=== PATIENT | male | born 1970 | race Two or more races ===

== ENCOUNTER 2019-12-25 23:25 | Inpatient (IN) | payer OTHER ==
[~2019-12-25] VITALS: Ht 175.3 cm; Wt 85.1 kg
--- NOTE | 2019-12-25 23:44 | NUR ---
CARE ASSUMED OF PT. PT IN CT VIA [facility]. WILL ASSESS UPON RETURN.
[2019-12-26] MEDS ORDERED: LIDOCAINE JELLY 2%, 30GM TP ONE
--- NOTE | 2019-12-26 00:08 | NUR ---
Pt returned from CT. Answering questions appropriately. Pt is tearful and repetative. Moving all extemities. +ETOH tonight. Lido jelly applied prior to wound cleaning per ERP request. Family member at bedside. Call light in reach.
--- NOTE | 2019-12-26 00:50 | NUR ---
Dorcas LANGSTON at bedside for suture repair.
[2019-12-26] MEDS ORDERED: SODIUM CHLORIDE 0.9% 1,000 ML IV ONE (00:53)
[2019-12-26] MEDS ORDERED: SODIUM CHLORIDE FLUSH 10ML SYR IVF ONE (01:00)
[2019-12-26] MEDS ORDERED: AMPICILLIN/SULBACTAM 3 GM in SODIUM CHLORIDE 0.9% 100 ML IV ONE (01:00)
[2019-12-26] MEDS ORDERED: MORPHINE SULFATE 4 MG/ML, 1ML IVPush PRN (01:00)
[2019-12-26 01:09] LABS: BASOPHILS # (AUTO) 0.03 x10^3/uL (0-0.1); BASOPHILS % (AUTO) 0 % (0-1); EOSINOPHILS # (AUTO) 0.16 x10^3/uL (0-0.4); EOSINOPHILS % (AUTO) 2 % (1-7); LYMPHOCYTES % (AUTO) 25 % (22-44); MD NO; MEAN CORPUSCULAR HEMOGLOBIN 34.7 pg (27.5-34.5); MEAN CORPUSCULAR HGB CONC 34.7 g/dL (33.2-36.2); MEAN CORPUSCULAR VOLUME 99.9 fL (81-97); MEAN PLATELET VOLUME 7.8 fL (7.4-10.4); MONOCYTES # (AUTO) 0.87 x10^3/uL (0.2-0.8); MONOCYTES % (AUTO) 10 % (2-9); NEUTROPHILS # (AUTO) 5.47 x10^3/uL (1.8-6.8); NEUTROPHILS % (AUTO) 63 % (42-75); PLATELET COUNT 226 x10^3/uL (130-400); RED BLOOD COUNT 4.58 x10^6/uL (4.38-5.82); RED CELL DISTRIBUTION WIDTH 13.1 % (9.4-14.8)
[2019-12-26 01:19] LABS: ALBUMIN 3.7 g/dL (3.4-5.0); ANION GAP 5 mmol/L (5-15); CALCIUM 8.5 mg/dL (8.5-10.1); CHLORIDE 107 mmol/L (98-107); CREATININE 1.07 mg/dL (0.7-1.3)
[2019-12-26] MEDS ORDERED: ZIPRASIDONE 20 MG INJ IM ONE (01:30)
[2019-12-26] MEDS ORDERED: MORPHINE SULFATE 4 MG/ML, 1ML ONE (02:14)
--- NOTE | 2019-12-26 02:21 | NUR ---
Pt c/o increasing facial pain and DAMIAN. No other acute neuro changes noted from initial assessment. Pt medicated per NOV for pain. Dr Riggins at bedside to [facility] for admission.
[2019-12-26 02:58] VITALS: BP 136/75
[2019-12-26] MEDS ORDERED: LORazepam 2 MG/ML, 1ML IVPush PRN ×2 (03:30→11:30)
[2019-12-26] MEDS ORDERED: hydrALAzine 20 MG/ML, 1ML IVPush PRN (03:30)
[2019-12-26] MEDS ORDERED: ONDANSETRON 2MG/ML, 2ML IVPush PRN (03:30)
[2019-12-26 04:00] LABS: ALANINE AMINOTRANSFERASE 26 U/L (12-78)
[2019-12-26 04:02] LABS: ALKALINE PHOSPHATASE 69 U/L (45-117); INTERNATIONAL NORMALIZED RATIO 0.94 (0.93-1.1); TOTAL PROTEIN 7.8 g/dL (6.4-8.2)
[2019-12-26] MEDS: POTASSIUM CHLORIDE 20 MEQ, MAGNESIUM SULFATE 2 GM, THIAMINE 200 MG, MVI ADULT 10 ML, FO... IV SCH ×2 (04:08→15:12)
[2019-12-26 04:10] LABS: BILIRUBIN, DIRECT < 0.1 mg/dL (0.1-0.2); BILIRUBIN,TOTAL < 0.1 mg/dL (0.2-1.0)
[2019-12-26 04:11] LABS: ALBUMIN 3.7 g/dL (3.4-5.0)
[2019-12-26 06:43] VITALS: BP 133/81
[2019-12-26] MEDS: SENNA/DOCUSATE TABLET PO SCH (08:09)
[2019-12-26] MEDS: AMPICILLIN/SULBACTAM 3 GM in SODIUM CHLORIDE 0.9% 100 ML IV SCH ×3 (08:09→20:20)
[2019-12-26 08:16] LABS: AMPHETAMINE SCREEN, URINE Negative (Negative); BARBITURATE SCREEN, URINE Negative (Negative); BENZODIAZEPINE SCREEN, URINE Negative (Negative); CANNABINOID SCREEN, URINE Negative (Negative); COCAINE SCREEN, URINE Negative (Negative); METHADONE SCREEN, URINE Negative (Negative); OPIATE SCREEN, URINE Positive (Negative)
[2019-12-26] MEDS: morphine SULFATE 10 MG/ML, 1ML IVPush PRN ×2 (12:41→18:23)
[2019-12-26 13:35] VITALS: BP 144/82
[2019-12-26 20:04] VITALS: BP 137/92
[2019-12-27 00:26] VITALS: BP 133/85
[2019-12-27] MEDS: AMPICILLIN/SULBACTAM 3 GM in SODIUM CHLORIDE 0.9% 100 ML IV SCH ×4 (01:55→20:05)
[2019-12-27] MEDS: POTASSIUM CHLORIDE 20 MEQ, MAGNESIUM SULFATE 2 GM, THIAMINE 200 MG, MVI ADULT 10 ML, FO... IV SCH (02:21)
[2019-12-27 05:36] LABS: BASOPHILS # (AUTO) 0.03 x10^3/uL (0-0.1); BASOPHILS % (AUTO) 0 % (0-1); EOSINOPHILS # (AUTO) 0.08 x10^3/uL (0-0.4); EOSINOPHILS % (AUTO) 1 % (1-7); LYMPHOCYTES # (AUTO) 1.96 x10^3/uL (1-3.4); LYMPHOCYTES % (AUTO) 17 % (22-44); MD NO; MEAN CORPUSCULAR HEMOGLOBIN 34.2 pg (27.5-34.5); MEAN CORPUSCULAR HGB CONC 34.1 g/dL (33.2-36.2); MEAN CORPUSCULAR VOLUME 100.3 fL (81-97); MEAN PLATELET VOLUME 8.2 fL (7.4-10.4); MONOCYTES % (AUTO) 11 % (2-9); NEUTROPHILS # (AUTO) 8.15 x10^3/uL (1.8-6.8); NEUTROPHILS % (AUTO) 71 % (42-75); PLATELET COUNT 224 x10^3/uL (130-400); RED BLOOD COUNT 4.29 x10^6/uL (4.38-5.82); RED CELL DISTRIBUTION WIDTH 13.3 % (9.4-14.8)
[2019-12-27 05:45] LABS: ANION GAP 6 mmol/L (5-15); CALCIUM 8.5 mg/dL (8.5-10.1); CHLORIDE 104 mmol/L (98-107); CREATININE 0.98 mg/dL (0.7-1.3)
[2019-12-27 07:24] VITALS: BP 158/95
[2019-12-27] MEDS: SENNA/DOCUSATE TABLET PO SCH (07:46)
[2019-12-27 10:27] VITALS: BP 142/96
[2019-12-27] MEDS: BACITRACIN/POLYMIXIN B SULFATE OINT 14 GM TP SCH ×2 (11:49→20:41)
[2019-12-27] MEDS ORDERED: POTASSIUM CHLORIDE 20 MEQ, MAGNESIUM SULFATE 2 GM, THIAMINE 200 MG, MVI ADULT 10 ML, FO... IV SCH (15:00)
[2019-12-27 15:19] VITALS: BP 157/102
[2019-12-27 16:36] VITALS: BP 147/90
[2019-12-27 19:55] VITALS: BP 133/94
[2019-12-28] MEDS: AMPICILLIN/SULBACTAM 3 GM in SODIUM CHLORIDE 0.9% 100 ML IV SCH ×3 (01:46→14:00)
[2019-12-28 02:54] VITALS: BP 139/84
[2019-12-28 06:50] VITALS: BP 149/86
[2019-12-28] MEDS ORDERED: HYDROcodone/APAP 5/325 TABLET PO PRN (07:30)
[2019-12-28] MEDS: SENNA/DOCUSATE TABLET PO SCH (07:39)
[2019-12-28] MEDS: BACITRACIN/POLYMIXIN B SULFATE OINT 14 GM TP SCH (07:42)
[2019-12-28] MEDS ORDERED: MUPIROCIN OINT 2%, 22GM ONE (07:45)
[2019-12-28] MEDS ORDERED: OXYMETAZOLINE NASAL SPRAY 0.05%, 15ML ONE (07:46)
[2019-12-28] MEDS ORDERED: COCAINE TOPICAL SOLN 4%, 4ML ONE (07:46)
[2019-12-28] MEDS ORDERED: LIDOCAINE 1%-EPI 1:100K, 20ML ONE (07:46)
[2019-12-28] MEDS ORDERED: FENTANYL PF 250 MCG/5ML ONE (09:04)
[2019-12-28] MEDS ORDERED: MIDAZOLAM 1 MG/ML, 2ML ONE (09:04)
[2019-12-28] MEDS ORDERED: OXYcodone 5 MG/5 ML ORAL.SOL UDC PO PRN (09:30)
[2019-12-28] MEDS ORDERED: ONDANSETRON 2MG/ML, 2ML IV PRN (09:30)
[2019-12-28] MEDS ORDERED: FENTANYL PF 100 MCG/2ML IV PRN (09:30)
[2019-12-28] MEDS ORDERED: MORPHINE SULFATE 4 MG/ML, 1ML IVPush PRN (09:30)
[2019-12-28] MEDS ORDERED: hydrALAzine 20 MG/ML, 1ML IV PRN (09:30)
[2019-12-28] MEDS ORDERED: LABETALOL 5MG/ML, 20ML IV PRN (09:30)
[2019-12-28] MEDS ORDERED: HYDROmorphone 2 MG/ML, 1ML IVPush PRN (09:30)
[2019-12-28] MEDS ORDERED: MEPERIDINE/PF 25MG/ML,1ML IVPush PRN (09:30)
[2019-12-28] MEDS ORDERED: PROPOFOL 10 MG/ML, 20ML ONE (09:35)
[2019-12-28] MEDS ORDERED: GLYCOPYRROLATE 0.2MG/1ML, 5ML ONE (09:35)
[2019-12-28] MEDS ORDERED: NEOSTIGMINE 1 MG/ML, 10ML ONE (09:35)
[2019-12-28] MEDS ORDERED: SUGAMMADEX 200 MG/2 ML IVPush ONE (09:35)
[2019-12-28] MEDS ORDERED: ROCURONIUM 10MG/ML,5ML ONE (09:35)
[2019-12-28] MEDS ORDERED: FLU VAC QS 19-20(4YR UP)CEL/PF 0.5 ML IM-VACC ONE (13:00)
[2019-12-28] MEDS ORDERED: FLU VACC QS2019-20 36MOS UP/PF 0.5 ML IM-VACC ONE (13:30)
[2019-12-28 13:45] VITALS: BP 135/91
[2019-12-28] MEDS ORDERED: AMOX1TAB64 PO (13:55)
== END 2019-12-28 15:02 | disposition home or self-care (01) | DRG 157 ==
LOC: ED 12-26 01:06 → EDIP 12-26 01:20 → 3N 12-26 02:00 → 4NE 12-28 10:51
PROVIDERS: ADMIT Family Medicine; ATTEND Family Medicine
PROC: 0JC Subcutaneous Tissue and Fascia, Extirpation (ICD-10-PCS; 2019-12-26)
PROC: 0HQ0XZZ Repair Scalp Skin, External Approach (ICD-10-PCS; 2019-12-26)
PROC: 0CQ7XZZ Repair Tongue, External Approach (ICD-10-PCS; 2019-12-26)
PROC: 09QKXZZ Repair Nasal Mucosa and Soft Tissue, External Approach (ICD-10-PCS; 2019-12-26)
PROC: 0NSBXZZ Reposition Nasal Bone, External Approach (ICD-10-PCS; principal; 2019-12-28 09:00)
DX: S02.40FA Zygomatic fracture, left side, initial encounter for closed fracture (principal); S02.19XB Other fracture of base of skull, initial encounter for open fracture; S02.31XA Fracture of orbital floor, right side, initial encounter for closed fracture; S06.0X9A Concussion with loss of consciousness of unspecified duration, initial encounter; S02.2XXA Fracture of nasal bones, initial encounter for closed fracture; S02.40CA Maxillary fracture, right side, initial encounter for closed fracture; F10.129 Alcohol abuse with intoxication, unspecified; Y90.9 Presence of alcohol in blood, level not specified; G89.11 Acute pain due to trauma; W18.39XA Other fall on same level, initial encounter; Y93.89 Activity, other specified; Y92.89 Other specified places as the place of occurrence of the external cause; Y99.8 Other external cause status; G93.89 Other specified disorders of brain; M79.5 Residual foreign body in soft tissue
CPT/HCPCS: 36415; 96372; 96374; 96375; 99285; J7042; 70450; 70486; 72125; 80048; 80076; 80307; 82040; 85025; 85610; 85730; 90686; G0378; J0295; J2250; J2704; J2710; J3010; J3411; J3475; J3480; J3486; J3490; J0360; J2270; J7030